=== PATIENT | female | born 1980 | race Caucasian/White ===

== ENCOUNTER → 2021-09-03 | Outpatient (CLI) | payer OTHER ==
[2021-09-03 15:01] LABS: Basophils # (A) 0.1 k/uL (0-0.2); Basophils % (A) 1 %; Eosinophils # (A) 0.1 k/uL (0-0.7); Eosinophils % (A) 2 %; HCT 42.2 % (34.0-46.0); HGB 13.8 gm/dL (11.4-16.0); Lymphocytes # (A) 1.8 k/uL (1.0-4.8); Lymphocytes % (A) 27 %; MCH 29.3 pg (25.0-35.0); MCHC 32.7 g/dL (31.0-37.0); MCV 89.7 fL (80.0-100.0); Mean Platelet Volume 7.7; Monocytes # (A) 0.3 k/uL (0-1.0); Monocytes % (A) 5 %; Neutrophils # (A) 4.2 k/uL (1.3-7.7); Neutrophils % (A) 64 %; Platelet Count 241 k/uL (150-450); RBC 4.71 m/uL (3.80-5.40); RDW 12.5 % (11.5-15.5); WBC 6.6 k/uL (3.8-10.6)
[2021-09-03 15:11] LABS: African American GFR (CKD) >90 (>60 ml/min/1.73 sqM); Anion Gap 9 mmol/L; Blood Urea Nitrogen 12 mg/dL (7-17); Carbon Dioxide 28 mmol/L (22-30); Chloride 103 mmol/L (98-107); Glucose 99 mg/dL (74-99); Non-African American GFR(CKD) >90 (>60 ml/min/1.73 sqM); Potassium 3.3 mmol/L (3.5-5.1); Sodium 140 mmol/L (137-145)
== END | disposition home or self-care (01) ==
LOC: LABWHC1 14:41
PROVIDERS: ATTEND Obstetrics & Gynecology
DX: Z01.812 Encounter for preprocedural laboratory examination (principal); N83.8 Other noninflammatory disorders of ovary, fallopian tube and broad ligament
CPT/HCPCS: 36415; 80051; 82565; 82947; 84520; 85025; 87086

== ENCOUNTER 2021-09-10 05:38 | Inpatient (IN) | payer OTHER ==
[2021-09-05 14:39] VITALS: BMI 25.8
[~2021-09-10 05:38] MED LIST: Pre Op ABX Message 1 EACH MISC MISCELLANE ONE
[2021-09-10] MEDS ORDERED: LACTATED RINGERS 1,000 ML IV SCH ×3 (06:10→10:20)
[2021-09-10] MEDS ORDERED: SCOPOLAMINE 1.5MG/72HR PATCH TRANSDERM ONE (06:10)
[2021-09-10] MEDS ORDERED: ONDANSETRON 4 MG/2 ML VIAL IVP ONE (06:10)
[2021-09-10] MEDS ORDERED: LIDOCAINE 1% (10MG/ML) FOR IV START INTRADERMA PRN (06:10)
[2021-09-10] MEDS ORDERED: DEXAMETHASONE SOD PHOSPHATE 4 MG/ML 1 ML VIAL IV ONE (06:10)
[2021-09-10] MEDS ORDERED: ONDANSETRON 4 MG/2 ML VIAL ONE (06:34)
[2021-09-10 06:48] LABS: Glucose,Whole Blood 97 mg/dL (75-99)
[2021-09-10] MEDS ORDERED: LACTATED RINGERS 1,000 ML IV ONE ×2 (06:51→08:28)
[2021-09-10] MEDS ORDERED: DEXAMETHASONE SOD PHOSPHATE 4 MG/ML 1 ML VIAL IVP ONE (07:00)
[2021-09-10] MEDS ORDERED: HYDROmorphone 0.5 MG/0.5 ML SYRINGE IVP PRN ×2 (07:00→07:28)
[2021-09-10] MEDS ORDERED: MIDAZOLAM 2 MG/2 ML VIAL IVP ONE (07:07)
[2021-09-10] MEDS ORDERED: fentaNYL (PF) 50 MCG/ML 5 ML AMP IVP ONE (07:11)
[2021-09-10] MEDS ORDERED: diphenhydrAMINE 50 MG/ML 1 ML VIAL ONE (07:19)
[2021-09-10] MEDS ORDERED: NALOXONE 0.4 MG/ML 1 ML VIAL IV PRN (07:28)
[2021-09-10] MEDS ORDERED: ONDANSETRON 4 MG/2 ML VIAL IVP PRN (07:28)
[2021-09-10] MEDS ORDERED: KETOROLAC 15 MG/ML 1 ML VIAL IVP PRN (07:28)
--- NOTE | 2021-09-10 07:29 | P.ANPRN ---
Procedure Note - Anesthesia - Epidural/Spinal Spinal Time Out Performed: Yes Date of Procedure: 09/10/21 Procedure Start Time: 07:06 Procedure Stop Time: 07:11 Location of Patient: PreOp Indication: Requested by Surgeon Sedation Type: Sedate with meaningful contact maintained Preparation: Sterile Prep Position: Sitting Needle Guage: 25 Narrative: duramorph 300 mcg +fentanyle 25 mcg given intrathecally Blood Aspirated: No Pain Paresthesia on Injection Noted: No
[2021-09-10] MEDS ORDERED: MORPHINE SULFATE (PF) 0.3 MG/0.3 ML SYR ONE (07:31)
[2021-09-10] MEDS ORDERED: ROCURONIUM 10 MG/ML (5 ML VIAL) IV ONE (07:31)
[2021-09-10] MEDS ORDERED: NEOSTIGMINE 1 MG/ML 10 ML VIAL ONE (07:31)
[2021-09-10] MEDS ORDERED: LIDOCAINE 1% INJ 10MG/ML (20 ML MDV) ONE (07:31)
[2021-09-10] MEDS ORDERED: PROPOFOL 10 MG/ML 20 ML VIAL IV ONE (07:31)
[2021-09-10] MEDS ORDERED: SUCCINYLCHOLINE CHLORIDE 100 MG/5 ML SYR IV ONE (07:31)
[2021-09-10] MEDS ORDERED: GLYCOPYRROLATE 0.2 MG/ML 2 ML VIAL ONE (07:31)
[2021-09-10] MEDS ORDERED: fentaNYL (PF) 50 MCG/ML 2 ML AMP ONE (07:31)
[2021-09-10] MEDS ORDERED: SODIUM CHLORIDE 0.9% 50 ML with ceFAZolin 2,000 MG IV ONE ×2 (07:36)
[2021-09-10] MEDS ORDERED: CELLULOSE,OXIDIZED 1 EACH EACH MISCELLANE ONE (08:37)
--- NOTE | 2021-09-10 09:09 | P.OP ---
Date of Procedure: 09/10/21 Preoperative Diagnosis: Complex left ovarian Postoperative Diagnosis: Left ovarian endometrioma, pelvic adhesions Procedure(s) Performed: Exploratory laparotomy, lysis of pelvic adhesions, left salpingo-oophorectomy Anesthesia: JUANITA Surgeon: Verenice Joiner Skewer Up #1: Paulina Goodwin Estimated Blood Loss (ml): 50 IV fluids (ml): 700 Urine output (ml): 200 Pathology: other (Left fallopian tube and ovary) Condition: stable Disposition: PACU Indications for Procedure: Enlarging left complex ovarian mass Operative Findings: Pelvic endometriosis with approximately 6 cm left ovarian endometrioma. Left ovary and adnexal region densely adherent to the left pelvic sidewall and bowel mesentery. Uterus slightly enlarged. Normal-appearing right fallopian tube and ovary. Normal cul-de-sac. Some endometriosis implants in the anterior cul-de-sac. Description of Procedure: After the patient was met in the preoperative holding area and spinal anesthetic was administered, she was taken to the operating room where general anesthetic was administered without incident. Of note she did have some skin reaction to the EKG stickers. She was positioned, prepped and draped in the dorsal supine position with a Carson catheter in place. A low transverse skin incision was made and was carried down to the underlying fascia sharply and with the electroc autery. Fascia was incised in the midline and extended bilaterally with the Aguirre scissors. The rectus muscles were bluntly in the midline and the peritoneum was tented up and entered sharply. Pelvic washings were taken. The peritoneal incision was extended on the and manual exploration was undertaken. There was dense adhesions and a large left ovarian mass noted adherent to the left pelvic sidewall. Self-retaining retractor was placed and the bowel and bladder were retracted out of the field. This allowed for better visualization and clearly this was an endometriosis process. With gentle blunt dissection the bowel mesentery was from the left ovary. The left ovary had a large endometrioma which did rupture. Copious chocolate cyst fluid was noted. The ovary was then placed on countertraction and additional careful and gentle blunt dissection was undertaken to free the left adnexa from the underlying bowel mesentery. The fallopian tube and round ligament were very inflamed. Decision was made to leave some of the left fallopian tube as this could not be easily dissected away from the infundibular pelvic ligament and cornual area without creating additional risk of bleeding. When the majority of the left adnexa was freed, Jerzy clamps were utilized to transect the tubo-ovarian complex and infundibulopelvic ligament. Specimen was removed. 2-0 Vicryl was utilized to doubly .ligate the pedicles. An additional superficial running stitch was placed along the remnants of the left fallopian tube for hemostasis. The pelvis was copiously suction irrigated. There were no areas of active bleeding. The right ovary was visualized and appeared grossly normal. Surgicel powder was placed over the raw edges of the bowel mesentery and omental adhesions and a piece of Surgicel film was placed over the suture line in the left adnexa and cornual region of the uterus. This was observed and remained dry. The packing and retractors were carefully removed from the abdomen. The rectus muscles, peritoneal edges and fascial edges were carefully inspected and Bovie electrocautery was utilized were necessary for hemostasis. The omentum was further inspected for hemostasis. The fascia was then closed in a running fashion with 0 Vicryl suture. The subcuticular tissue was copiously suction irrigated and reapproximated using 3-0 chromic. The skin was then closed with 4-0 Vicryl in a subcuticular fashion. All counts reported to me as correct by the operating room staff. The Carson catheter will remain in place for several hours to assure clear urine. Was clear urine throughout the procedure. Due to the inflammation from the endometriosis and scarring the course of the left ureter was impossible to identify visually during the case. The patient was awoken from anesthetic without incident and was transported recovery area in good condition.
[2021-09-10] MEDS ORDERED: diphenhydrAMINE 50 MG/ML 1 ML VIAL IVP ONE (09:11)
[2021-09-10] MEDS ORDERED: KETOROLAC 15 MG/ML 1 ML VIAL IVP ONE (09:14)
[2021-09-10] MEDS ORDERED: METOCLOPRAMIDE 5 MG/ML 2 ML VIAL IVP PRN (10:20)
[2021-09-10] MEDS ORDERED: IBUPROFEN 600 MG TAB PO PRN (10:20)
[2021-09-10] MEDS ORDERED: SIMETHICONE 80 MG CHEWABLE PO PRN (10:20)
[2021-09-10] MEDS ORDERED: Acetaminophen-Codeine 300-30mg TAB PO PRN (10:20)
[2021-09-10] MEDS ORDERED: ACETAMINOPHEN IV (For NPO) 1,000 MG in EMPTY BAG 1 BAG IVPB ONE (10:30)
[2021-09-10] MEDS: diphenhydrAMINE 50 MG/ML 1 ML VIAL IVP PRN ×2 (12:05→20:33)
[2021-09-10 20:36] VITALS: RESP 16
[2021-09-11 07:05] LABS: Basophils % (A) 0 %; Eosinophils % (A) 0 %; HCT 37.9 % (34.0-46.0); HGB 12.3 gm/dL (11.4-16.0); Lymphocytes # (A) 1.6 k/uL (1.0-4.8); Lymphocytes % (A) 18 %; MCH 29.2 pg (25.0-35.0); MCHC 32.5 g/dL (31.0-37.0); MCV 89.7 fL (80.0-100.0); Mean Platelet Volume 8.7; Monocytes # (A) 0.4 k/uL (0-1.0); Monocytes % (A) 5 %; Neutrophils # (A) 6.8 k/uL (1.3-7.7); Neutrophils % (A) 75 %; Platelet Count 201 k/uL (150-450); RBC 4.23 m/uL (3.80-5.40); RDW 12.5 % (11.5-15.5); WBC 9.1 k/uL (3.8-10.6)
--- NOTE | 2021-09-11 08:30 | P.DS ---
Providers Date of admission: 09/10/21 05:38 Expected date of discharge: 09/11/21 Attending physician: Verenice Joiner Primary care physician: Stated None - Discharge Diagnosis(es) (1) Ovarian mass, left Current Visit: Yes Status: Acute (2) Endometriosis Current Visit: Yes Status: Acute Hospital Course: This is a 41 year old woman who was admitted on 09/10/2021 4 exploratory laparotomy and left separately oophorectomy for findings of enlarging left ovarian mass. She went to the operating room and underwent an exploratory laparotomy with lysis of pelvic adhesions and left salpingo-oophorectomy. Findings at the time of surgery were significant for a 6 cm left ovarian endometrioma, dense pelvic adhesions specifically in the left adnexal area, and endometriosis implants in the anterior cul-de-sac. Please see the operative report for details. The patient's postoperative course was unremarkable. By the evening of the procedure she was on voiding spontaneously with a Carson catheter removed. She was tolerating a general diet. Her pain was well controlled. By postoperative day #1 she continued to do well. Her incision was intact and her pain was well-controlled with oral Tylenol and ibuprofen. Findings at the time of surgery were reviewed in detail with the patient as well as anticipated recovery course. She was therefore discharged home with routine instructions for postoperative care and follow-up. Procedures: Respiratory laparotomy, lysis of pelvic adhesions, left salpingo-oophorectomy Patient Condition at Discharge: Good Plan - Discharge Summary Discharge Rx Participant: Yes New Discharge Prescriptions: New Acetaminophen Tab [Tylenol] 650 mg PO Q6HR PRN tab PRN Reason: Fever And/Or Mild Pain Ibuprofen [Motrin] 600 mg PO Q6HR PRN tab PRN Reason: Mild Discomfort Discharge Medication List Acetaminophen Tab [Tylenol] 650 mg PO Q6HR PRN tab 09/11/21 [Rx] Ibuprofen [Motrin] 600 mg PO Q6HR PRN tab 09/11/21 [Rx] Follow up Appointment(s)/Referral(s): Verenice Joiner MD [STAFF PHYSICIAN] - 2 Weeks Activity/Diet/Wound Care/Special Instructions: Follow-up in 2 weeks after surgery in the office. Call the office with any concerning signs or symptoms including fever greater than 101, severe abdominal pain, heavy vaginal bleeding, signs of wound infection, increased swelling or redness of the lower extremities or inability to void. No driving for 2 weeks after surgery. No heavy lifting or vigorous activity until reevaluated in the office. No intercourse for 4 weeks. A use [id number] Tylenol and ibuprofen every 6 hours, alternating, as needed for pain. Discharge Disposition: HOME SELF-CARE
[2021-09-11] MEDS ORDERED: ACETAMINOPHEN TAB 325 MG TAB PO PRN (09:12)
[2021-09-11 09:26] VITALS: BP 121/75; PULSE 76; TEMP 98.4
--- NOTE | 2021-09-11 09:37 | P.PN ---
Progress Note - Text Progress Note Date: 09/11/21 Patient seen and examined at bedside POD 1 s/p oopherectomy with spinal duramorph. Patient is sitting up and reports minimal pain. She is able to ambulate and use the restroom without difficulty. She has no motor or sensory deficits. Patient reports no itching from the duramorph. Site is clean and dry without erythema. Patient denies MEANS, F/C, parathesias, N/V. Discharge per primary team.
== END 2021-09-11 10:15 | disposition home or self-care (01) | DRG 743 ==
LOC: 2ORMAIN 05:38 → 4FBP 09:16
PROVIDERS: ADMIT Obstetrics & Gynecology; ATTEND Obstetrics & Gynecology
PROC: 0UT60ZZ Resection of Left Fallopian Tube, Open Approach (ICD-10-PCS; 2021-09-10)
PROC: 0DNW0ZZ Release Peritoneum, Open Approach (ICD-10-PCS; 2021-09-10)
PROC: 0UT10ZZ Resection of Left Ovary, Open Approach (ICD-10-PCS; principal; 2021-09-10 07:30)
DX: N80.1 Endometriosis of ovary (principal); N83.8 Other noninflammatory disorders of ovary, fallopian tube and broad ligament; N80.3 Endometriosis of pelvic peritoneum; N73.6 Female pelvic peritoneal adhesions (postinfective); Z20.822 Contact with and (suspected) exposure to COVID-19; Z88.1 Allergy status to other antibiotic agents
CPT/HCPCS: 81025; 85025; 86850; 86900; 86901; 87635